=== PATIENT | female | born 1995 | race Caucasian/White ===

== ENCOUNTER 2016-10-25 11:52 | Emergency (ER) | payer OTHER ==
[2016-10-25 12:44] VITALS: BP 120/75
--- NOTE | 2016-10-25 13:47 | UC ---
Throat Pain/Nasal Anurag HPI - HPI Summary HPI Summary: over 1 week of worsening sinus pain, nasal and ear congestion--I get sinus infections 1or 2 times a year - History of Current Complaint Hx Obtained From: Patient Hx Last Menstrual Period: 10/14/16 ?: No Onset/Duration: Sudden Onset, Lasting Days - >7 days, Still Present Severity: Moderate Pain Intensity: 5 Pain Scale Used: 0-10 Numeric Cough: Nonproductive Associated Signs & Symptoms: Positive: Sinus Discomfort, Nasal Discharge <Yvette Ramirez - Last Filed: 10/25/16 14:26> <Chela Gonzales - Last Filed: 10/26/16 19:36> - History of Current Complaint Chief Complaint: UCGeneralIllness Stated Complaint: SINUS,SORE THROAT Time Seen by Provider: 10/25/16 13:41 - Allergies/Home Medications Allergies/Adverse Reactions: Allergies Allergy/AdvReac Type Severity Reaction Status Date / Time No Known Allergies Allergy Verified 10/25/16 12:44 Home Medications: Home Medications Metoprolol Tartrate [Lopressor] 25 mg PO DAILY 10/25/16 [History Confirmed 10/25] Norgestimate-Eth Estradiol(NF) [Ortho Tri-Cyclen (NF)] 1 tab PO DAILY 10/25/16 [ History Confirmed 10/25/16] Sumatriptan Succinate [Imitrex] 1 tab PO BID PRN 10/25/16 [History Confirmed ] PMH/Surg Hx/FS Hx/Imm Hx Previously Healthy: Yes - Surgical History Surgical History: None - Family History Known Family History: Positive: None - Social History Occupation: Student Lives: Alone Alcohol Use: Weekly Substance Use Type: None Smoking Status (MU): Never Smoked Tobacco Household Exposure Type: Cigarettes - Immunization History Most Recent Influenza Vaccination: 05/2016 <Yvette Ramirez - Last Filed: 10/25/16 14:26> Review of Systems Constitutional: Chills, Fatigue Skin: Negative Eyes: Negative ENT: Sore Throat, Ear Ache, Nasal Discharge Respiratory: Cough Cardiovascular: Negative Gastrointestinal: Negative Genitourinary: Negative Motor: Negative Neurovascular: Negative Musculoskeletal: Negative Neurological: Negative Psychological: Negative All Other Systems Reviewed And Are Negative: Yes <Yvette Ramirez - Last Filed: 10/25/16 14:26> Physical Exam Triage Information Reviewed: Yes Appearance: Well-Appearing, Well-Nourished, Pain Distress - mild Vital Signs: Initial Vital Signs Temp 98.3 F 10/25/16 12:40 Pulse 80 10/25/16 12:40 Resp 18 10/25/16 12:40 BP 120/75 10/25/16 12:40 Pulse Ox 96 10/25/16 12:40 Vital Signs Reviewed: Yes Eye Exam: Normal Eyes: Positive: Conjunctiva Clear ENT Exam: Normal ENT: Positive: Normal ENT inspection, Hearing grossly normal, Pharynx normal, Nasal congestion, TMs normal. Negative: Nasal drainage, Tonsillar swelling, Tonsillar exudate, Trismus, Muffled/hoarse voice Dental Exam: Normal Neck exam: Normal Neck: Positive: Supple, Nontender, No Lymphadenopathy Respiratory Exam: Normal Respiratory: Positive: Chest non-tender, Lungs clear, Normal breath sounds, No respiratory distress, No accessory muscle use Cardiovascular Exam: Normal Cardiovascular: Positive: RRR, No Murmur, Pulses Normal, Brisk Capillary Refill Musculoskeletal Exam: Normal Musculoskeletal: Positive: Strength Intact, ROM Intact, No Edema Neurological Exam: Normal Neurological: Positive: Alert, Muscle Tone Normal Psychological Exam: Normal Psychological: Positive: Normal Response To Family, Age Appropriate Behavior Skin Exam: Normal <Yvette Ramirez - Last Filed: 10/25/16 14:26> Vital Signs: Initial Vital Signs Temp 98.3 F 10/25/16 12:40 Pulse 80 10/25/16 12:40 Resp 18 10/25/16 12:40 BP 120/75 10/25/16 12:40 Pulse Ox 96 10/25/16 12:40 <Chela Gonzales - Last Filed: 10/26/16 19:36> Throat Pain/Nasal Course/Dx - Course Assessment/Plan: augmentin, flonase, mucinex d Incresase fluids,rest follow at the [facility] - Differential Dx/Diagnosis Differential Diagnosis/HQI/PQRI: Influenza, Laryngitis, Otitis Media, Peritonsillar Abscess, Pharyngitis, Sinusitis, Tonsillitis Provider Diagnoses: acute rhinisinusitis <Yvette Ramirez - Last Filed: 10/25/16 14:26> Discharge <Yvette Ramirez - Last Filed: 10/25/16 14:26> <Chela Gonzales - Last Filed: 10/26/16 19:36> - Discharge Plan Condition: Stable Disposition: HOME Prescriptions: Amoxicillin/Clavulanate TAB* [Augmentin TAB 875*] 875 mg PO BID #20 tab Fluticasone NASAL SPRAY 50MCG* [Flonase NASAL SPRAY 50MCG*] 2 spray BOTH NARES DAILY #1 btl Patient Education Materials: Sinusitis (ED), How to Use Nasal [place] (ED) Referrals: Non Staff,Doctor [Primary Care Provider] - Additional Instructions: Follow at [facility] or return as needed Attestation Statement User Type: Provider - I was available for consult. This patient was seen by the advanced practice provider. The patient was not presented to, seen by, or examined by me.-Neema <Chela Gonzales - Last Filed: 10/26/16 19:36>
== END 2016-10-25 13:54 | disposition home or self-care (01) ==
LOC: UCCORT 11:52
DX: J01.90 Acute sinusitis, unspecified (principal); Z77.22 Contact with and (suspected) exposure to environmental tobacco smoke (acute) (chronic)
CPT/HCPCS: 99202; G0463